=== PATIENT | male | born 1955 | race Caucasian/White ===

== ENCOUNTER 2019-10-12 12:42 | Observation (INO) ==
[2019-10-12 13:31] LABS: Basophils % 0.6 %; Eosinophils % 4.6 %; Hematocrit 33.1 % (37.5-50.1); Immature Granulocytes % 0.1 % (0-4); Lymphocytes % 18.4 %; Mean Corpuscular HGB Conc 33.2 g/dL (31.6-35.5); Mean Corpuscular Hemoglobin 31.3 pg (28.0-33.3); Mean Platelet Volume 9.7 fL (9.4-12.4); Monocytes % 8.8 %; Platelet Count 109 K/mcL (140-400); Red Blood Count 3.52 M/mcL (4.19-5.50); Red Cell Distribution Width 13.4 % (11.5-14.5); Segmented Neutrophils % 67.5 %
[2019-10-12 13:32] LABS: Eosinophils # 0.3 K/mcL (0.0-0.6); Lymphocytes # 1.3 K/mcL (0.6-4.6); Monocytes # 0.6 K/mcL (0.0-1.3); Neutrophils # 4.7 K/mcL (1.6-8.9)
[2019-10-12 13:47] LABS: Alanine Aminotransferase 11 Units/L (7-52); Albumin 4.3 g/dL (3.5-5.7); Albumin/Globulin Ratio 1.9 (1.1-2.2); Alkaline Phosphatase 49 Units/L (34-104); Aspartate Amino Transferase 10 Units/L (13-39); BUN/Creatinine Ratio 15 (6-26); Bilirubin,Total 0.4 mg/dL (0.3-1.0); Blood Urea Nitrogen 84 mg/dL (8-23); Calcium 9.7 mg/dL (8.6-10.3); Carbon Dioxide 23 mEq/L (23-29); Chloride 103 mEq/L (98-107); Globulin 2.3 g/dL (2.4-3.5); Glucose 104 mg/dL (70-105); Osmolality,Calculated 312 (280-300); Potassium 3.2 mEq/L (3.5-5.1); Sodium 138 mEq/L (136-145); Total Protein 6.6 g/dL (6.4-8.9); Troponin I < 0.03 ng/mL (< 0.04); eGFR For African Americans 12 (> 60); eGFR For Non-African Americans 10 (> 60)
[2019-10-12] MEDS ORDERED: Potassium Chloride Elixir 20 MEQ/15 ML UDC PO ONE (14:23)
[2019-10-12] MEDS ORDERED: 0.9 % Sodium Chloride 500 ML IVC ONE ×2 (14:32→15:00)
[2019-10-12] MEDS ORDERED: Naloxone 0.4 MG/ML INJ IVP PRN (16:08)
[2019-10-12 16:24] LABS: Creatine Kinase 111 Units/L (30-223); Uric Acid 8.6 mg/dL (2.3-7.6)
[2019-10-12] MEDS: 0.9 % Sodium Chloride 1,000 ML IVC SCH (17:20)
[2019-10-12 18:14] LABS: Bilirubin,Urine Negative (Negative); Blood,Urine Negative (Negative); Clarity,Urine Clear (Clear); Color,Urine Colorless (Yellow); Glucose,Urine (UA) Normal (Normal); Ketones,Urine Negative (Negative); Leukocyte Esterase,Urine Negative (Negative); Nitrite,Urine Negative (Negative); Protein,Urine 70 mg/dL (Neg-Trace); RBC,Urine 0-3 per hpf (0-3); Specific Gravity,Urine 1.008 (1.010-1.025); Squamous Epithelial Cell,Urine Few per hpf (None-Few); Urobilinogen,Urine Normal (Normal); WBC,Urine 0-3 per hpf (0-3)
[2019-10-13 05:45] LABS: Calcium 9.2 mg/dL (8.6-10.3); Potassium 3.1 mEq/L (3.5-5.1)
[2019-10-13] MEDS: 0.9 % Sodium Chloride 1,000 ML IVC SCH (08:45)
[2019-10-13] MEDS: allopurinoL 300 MG TABLET PO SCH (08:48)
[2019-10-13] MEDS ORDERED: Potassium Chloride Elixir 20 MEQ/15 ML UDC PO ONE (13:26)
[2019-10-14 06:02] LABS: Calcium 9.4 mg/dL (8.6-10.3); Potassium 3.4 mEq/L (3.5-5.1)
[2019-10-14 08:26] LABS: Magnesium 2.9 mg/dL (1.6-2.6); Phosphorous 5.9 mg/dL (2.7-4.5)
[2019-10-14] MEDS: allopurinoL 300 MG TABLET PO SCH (08:36)
[2019-10-14 11:11] VITALS: BP 125/76
== END 2019-10-14 11:59 | disposition home or self-care (01) ==
LOC: 2ANU 12:42 → EMEROOARM 12:42 → SUATTDRO 15:23 → 2ANU 15:53
PROVIDERS: ADMIT Internal Medicine; ATTEND Internal Medicine

== ENCOUNTER 2020-10-08 21:52 | Inpatient (IN) ==
[2020-10-08] MEDS ORDERED: Isovue-370 500 ML BOTTLE IVP ONE (23:36)
[2020-10-09 00:05] LABS: Bacteria,Urine Few per hpf (None-Few); Bilirubin,Urine Negative (Negative); Blood,Urine Trace (Negative); Clarity,Urine Clear (Clear); Color,Urine Colorless (Yellow); Glucose,Urine (UA) 100 mg/dL (Normal); Ketones,Urine Negative (Negative); Leukocyte Esterase,Urine Negative (Negative); Nitrite,Urine Negative (Negative); PH,Urine 6.5 pH Units (5.0-8.0); Protein,Urine 200 mg/dL (Neg-Trace); RBC,Urine 0-3 per hpf (0-3); Specific Gravity,Urine 1.011 (1.010-1.025); Urobilinogen,Urine Normal (Normal); WBC,Urine 0-3 per hpf (0-3)
[2020-10-09] MEDS ORDERED: Piperacillin/Tazobactam 3.375 GM in Water for inj. (sterile) 20 ML IVP ONE (00:06)
[2020-10-09 00:42] LABS: Basophils % 0.3 %; Eosinophils # 0.3 K/mcL (0.0-0.6); Eosinophils % 2.4 %; Hematocrit 26.9 % (37.5-50.1); Hemoglobin 8.8 g/dL (12.9-16.9); Immature Granulocytes % 0.3 % (0-4); Lymphocytes # 0.9 K/mcL (0.6-4.6); Lymphocytes % 8.4 %; Mean Corpuscular HGB Conc 32.7 g/dL (31.6-35.5); Mean Corpuscular Hemoglobin 32.8 pg (28.0-33.3); Mean Corpuscular Volume 100.4 fL (83.0-100.0); Mean Platelet Volume 9.5 fL (9.4-12.4); Monocytes # 1.1 K/mcL (0.0-1.3); Neutrophils # 8.7 K/mcL (1.6-8.9); Platelet Count 100 K/mcL (140-400); Red Blood Count 2.68 M/mcL (4.19-5.50); Segmented Neutrophils % 78.6 %
[2020-10-09] MEDS ORDERED: Vancomycin 1,750 MG/517.5 ML IV.SOLN IVPB ONE (01:00)
[2020-10-09 01:02] LABS: Albumin 4.2 g/dL (3.5-5.7); Albumin/Globulin Ratio 1.6 (1.1-2.2); Bilirubin,Direct 0.1 mg/dL (0.0-0.2); Bilirubin,Indirect 0.3 mg/dL (0.0-1.0); Bilirubin,Total 0.4 mg/dL (0.3-1.0); Globulin 2.7 g/dL (2.4-3.5); Magnesium 2.8 mg/dL (1.6-2.6); Potassium 4.3 mEq/L (3.5-5.1); Total Protein 6.9 g/dL (6.4-8.9)
[2020-10-09] MEDS ORDERED: *HR* HYDROcodone/Acet 5/325 mg TABLET PO PRN (04:56)
[2020-10-09] MEDS ORDERED: Ondansetron 4 MG/2 ML VIAL IVP PRN (04:56)
[2020-10-09] MEDS ORDERED: *HR* OxyCODONE Immed Rel 5 MG TABLET PO PRN (04:56)
[2020-10-09] MEDS ORDERED: Naloxone 0.4 MG/ML INJ IVP PRN (04:56)
[2020-10-09] MEDS ORDERED: *HR* Promethazine 25 MG/ML VIAL IM PRN (04:56)
[2020-10-09] MEDS ORDERED: Melatonin 3 MG TABLET PO PRN (04:56)
[2020-10-09] MEDS ORDERED: Acetaminophen 325 MG TABLET PO PRN (04:56)
[2020-10-09] MEDS ORDERED: Vancomycin 1 EACH in 0.9 % Sodium Chloride 250 ML IVPB PRN (06:00)
[2020-10-09] MEDS ORDERED: Piperacillin/Tazobactam 3.375 GM in 0.9 % Sodium Chloride Mini Bag 100 ML IVPB SCH (08:00)
[2020-10-09] MEDS: Piperacillin/Tazobactam 3.375 GM in 0.9 % Sodium Chloride Mini Bag 100 ML IVPB SCH (12:33)
[2020-10-09 15:47] LABS: Hepatitis B Surface Antibody < 3.10 mIU/mL
[2020-10-09 15:56] LABS: Hepatitis B Surface Antigen Nonreactive (Nonreactive)
[2020-10-10] MEDS: Piperacillin/Tazobactam 3.375 GM in 0.9 % Sodium Chloride Mini Bag 100 ML IVPB SCH ×2 (00:41→12:18)
[2020-10-10 06:26] LABS: Basophils % 0.3 %; Eosinophils # 0.2 K/mcL (0.0-0.6); Eosinophils % 1.6 %; Hematocrit 27.3 % (37.5-50.1); Hemoglobin 9.1 g/dL (12.9-16.9); Immature Granulocytes % 0.4 % (0-4); Lymphocytes # 0.7 K/mcL (0.6-4.6); Lymphocytes % 6.2 %; Mean Corpuscular HGB Conc 33.3 g/dL (31.6-35.5); Mean Corpuscular Hemoglobin 33.3 pg (28.0-33.3); Mean Platelet Volume 9.5 fL (9.4-12.4); Monocytes # 1.1 K/mcL (0.0-1.3); Monocytes % 9.5 %; Neutrophils # 9.5 K/mcL (1.6-8.9); Platelet Count 101 K/mcL (140-400); Red Blood Count 2.73 M/mcL (4.19-5.50); White Blood Count 11.6 K/mcL (4.3-11.1)
[2020-10-10 06:47] LABS: Calcium 9.3 mg/dL (8.6-10.3); Magnesium 2.6 mg/dL (1.6-2.6); Potassium 4.2 mEq/L (3.5-5.1)
[2020-10-10] MEDS ORDERED: Gentamicin Oint 15 GM TUBE TP SCH ×2 (08:00→15:16)
[2020-10-10] MEDS ORDERED: Perit. Dialysis with Dex 2.5 % 2,000 ML PERITONEAL ONE (08:02)
[2020-10-10] MEDS ORDERED: Multivit/Ca/Min/Fe/FA 1 TAB TABLET PO SCH (09:00)
[2020-10-10] MEDS ORDERED: amLODIPine 5 MG TABLET PO SCH (09:00)
[2020-10-10] MEDS ORDERED: Cholecalciferol (D-3) 1,000 UNIT (25MCG) TABLET PO SCH (09:00)
[2020-10-10] MEDS ORDERED: Renal Vitamin 1 CAP CAPSULE PO SCH (09:00)
[2020-10-10] MEDS ORDERED: calcitrioL 0.25 MCG CAPSULE PO SCH (09:00)
[2020-10-10] MEDS ORDERED: allopurinoL 300 MG TABLET PO SCH (09:00)
[2020-10-10] MEDS ORDERED: *HR* Propofol 200 MG/20 ML VIAL IVP ONE (12:29)
[2020-10-10] MEDS ORDERED: *HR* FentaNYL (PF) 100 MCG/2 ML VIAL ONE (12:29)
[2020-10-10] MEDS ORDERED: *HR* Midazolam HCl 2 MG/2 ML VIAL ONE (12:29)
[2020-10-10] MEDS ORDERED: Acetaminophen IV 1,000 MG/100 ML BAG IVPB ONE ×2 (13:21→15:16)
[2020-10-10] MEDS ORDERED: *HR* OxyCODONE Immed Rel 5 MG TABLET PO PRN ×2 (13:21→15:16)
[2020-10-10] MEDS ORDERED: *HR* Labetalol 20 MG/4 ML SYRINGE IVP PRN (13:21)
[2020-10-10] MEDS ORDERED: *HR* HYDROmorphone 2 MG TABLET PO PRN (13:21)
[2020-10-10] MEDS ORDERED: *HR* HYDROmorphone (PF) 1 MG/ML SYRINGE IVP PRN (13:21)
[2020-10-10] MEDS ORDERED: Famotidine 20 MG/2 ML VIAL IVP ONE ×2 (13:21→15:16)
[2020-10-10] MEDS ORDERED: Ondansetron 4 MG/2 ML VIAL ONE (13:57)
[2020-10-10] MEDS ORDERED: Lidocaine -MPF 2% 2 ML VIAL ONE (13:57)
[2020-10-10] MEDS ORDERED: EPHEDrine 50 MG/ML VIAL ONE (13:59)
[2020-10-10] MEDS ORDERED: Ondansetron 4 MG/2 ML VIAL IVP PRN (15:16)
[2020-10-10] MEDS ORDERED: Acetaminophen 325 MG TABLET PO PRN (15:16)
[2020-10-10] MEDS ORDERED: Naloxone 0.4 MG/ML INJ IVP PRN (15:16)
[2020-10-10] MEDS ORDERED: Vancomycin 1 EACH in 0.9 % Sodium Chloride 250 ML IVPB PRN (15:16)
[2020-10-10] MEDS ORDERED: *HR* HYDROcodone/Acet 5/325 mg TABLET PO PRN (15:16)
[2020-10-10] MEDS ORDERED: *HR* Promethazine 25 MG/ML VIAL IM PRN (15:16)
[2020-10-11] MEDS: Piperacillin/Tazobactam 3.375 GM in 0.9 % Sodium Chloride Mini Bag 100 ML IVPB SCH ×2 (00:35→11:44)
[2020-10-11 05:39] LABS: Hematocrit 24.3 % (37.5-50.1); Hemoglobin 7.8 g/dL (12.9-16.9); Immature Platelets 0.7 % (1.1-6.1); Mean Corpuscular HGB Conc 32.1 g/dL (31.6-35.5); Mean Corpuscular Hemoglobin 32.4 pg (28.0-33.3); Mean Corpuscular Volume 100.8 fL (83.0-100.0); Mean Platelet Volume 9.6 fL (9.4-12.4); Red Blood Count 2.41 M/mcL (4.19-5.50); Red Cell Distribution Width 13.7 % (11.5-14.5); White Blood Count 10.4 K/mcL (4.3-11.1)
[2020-10-11 06:08] LABS: Calcium 9.1 mg/dL (8.6-10.3); Potassium 4.4 mEq/L (3.5-5.1)
[2020-10-11] MEDS: amLODIPine 5 MG TABLET PO SCH (09:00)
[2020-10-11] MEDS ORDERED: calcitrioL 0.25 MCG CAPSULE PO SCH (09:00)
[2020-10-11] MEDS ORDERED: Cholecalciferol (D-3) 1,000 UNIT (25MCG) TABLET PO SCH (09:00)
[2020-10-11] MEDS: Multivit/Ca/Min/Fe/FA 1 TAB TABLET PO SCH (09:00)
[2020-10-11] MEDS: Renal Vitamin 1 CAP CAPSULE PO SCH (09:00)
[2020-10-11] MEDS: allopurinoL 300 MG TABLET PO SCH (09:01)
[2020-10-12] MEDS: Piperacillin/Tazobactam 3.375 GM in 0.9 % Sodium Chloride Mini Bag 100 ML IVPB SCH ×2 (00:17→12:00)
[2020-10-12 01:35] LABS: Mean Platelet Volume 9.7 fL (9.4-12.4); Red Cell Distribution Width 13.3 % (11.5-14.5)
[2020-10-12 01:36] LABS: Immature Platelets 0.6 % (1.1-6.1); Mean Corpuscular HGB Conc 33.3 g/dL (31.6-35.5); Mean Corpuscular Hemoglobin 32.9 pg (28.0-33.3); Mean Corpuscular Volume 98.8 fL (83.0-100.0); Red Blood Count 2.43 M/mcL (4.19-5.50); White Blood Count 9.3 K/mcL (4.3-11.1)
[2020-10-12 02:00] LABS: Magnesium 2.8 mg/dL (1.6-2.6); Phosphorous 6.6 mg/dL (2.7-4.5)
[2020-10-12 02:01] LABS: Calcium 9.5 mg/dL (8.6-10.3); Potassium 3.9 mEq/L (3.5-5.1)
[2020-10-12] MEDS: Multivit/Ca/Min/Fe/FA 1 TAB TABLET PO SCH (08:55)
[2020-10-12] MEDS: allopurinoL 300 MG TABLET PO SCH (08:55)
[2020-10-12] MEDS: amLODIPine 5 MG TABLET PO SCH (08:55)
[2020-10-12] MEDS: Renal Vitamin 1 CAP CAPSULE PO SCH (08:55)
[2020-10-12] MEDS ORDERED: 0.9 % Sodium Chloride 250 ML IVC PRN (09:33)
[2020-10-12] MEDS ORDERED: *HR* Heparin 10,000 UNIT/10 ML VIAL IV PRN (09:33)
[2020-10-12] MEDS ORDERED: 0.9 % Sodium Chloride 1,000 ML PRIME SCH (09:45)
[2020-10-12] MEDS ORDERED: 0.9 % Sodium Chloride 500 ML ONE (13:03)
[2020-10-12] MEDS ORDERED: *HR* FentaNYL (PF) 100 MCG/2 ML VIAL IVP ONE (13:09)
[2020-10-12] MEDS ORDERED: CeFAZolin 2,000MG/50ML DUPLEX 2,000 MG/50 ML BAG IVPB ONE (13:09)
[2020-10-12] MEDS ORDERED: *HR* Midazolam HCl 5 MG/5 ML VIAL IVP ONE (13:09)
[2020-10-12] MEDS ORDERED: *HR* Midazolam HCl 2 MG/2 ML VIAL ONE (13:16)
[2020-10-12] MEDS ORDERED: *HR* Heparin 5,000 UNIT/ML VIAL ONE (13:23)
[2020-10-13] MEDS: Piperacillin/Tazobactam 3.375 GM in 0.9 % Sodium Chloride Mini Bag 100 ML IVPB SCH ×2 (00:27→13:16)
[2020-10-13 06:42] LABS: Hematocrit 26.6 % (37.5-50.1); Hemoglobin 8.9 g/dL (12.9-16.9); Mean Corpuscular HGB Conc 33.5 g/dL (31.6-35.5); Mean Corpuscular Hemoglobin 33.2 pg (28.0-33.3); Mean Corpuscular Volume 99.3 fL (83.0-100.0); Mean Platelet Volume 9.8 fL (9.4-12.4); Platelet Count 114 K/mcL (140-400); Red Blood Count 2.68 M/mcL (4.19-5.50); Red Cell Distribution Width 13.3 % (11.5-14.5); White Blood Count 9.3 K/mcL (4.3-11.1)
[2020-10-13 06:55] LABS: Magnesium 2.4 mg/dL (1.6-2.6); Phosphorous 5.8 mg/dL (2.7-4.5)
[2020-10-13 06:57] LABS: Calcium 9.4 mg/dL (8.6-10.3); Potassium 3.9 mEq/L (3.5-5.1)
[2020-10-13] MEDS ORDERED: *HR* Heparin 10,000 UNIT/10 ML VIAL IV PRN (07:56)
[2020-10-13] MEDS ORDERED: 0.9 % Sodium Chloride 250 ML IVC PRN (07:56)
[2020-10-13] MEDS: Renal Vitamin 1 CAP CAPSULE PO SCH (08:43)
[2020-10-13] MEDS: allopurinoL 300 MG TABLET PO SCH (08:44)
[2020-10-13] MEDS: Multivit/Ca/Min/Fe/FA 1 TAB TABLET PO SCH (08:44)
[2020-10-13] MEDS: amLODIPine 5 MG TABLET PO SCH (13:16)
[2020-10-13] MEDS ORDERED: Vancomycin 500 MG in 0.9 % Sodium Chloride Mini Bag 100 ML IVPB ONE (15:00)
[2020-10-13] MEDS: Melatonin 3 MG TABLET PO PRN (22:11)
[2020-10-14] MEDS: Piperacillin/Tazobactam 3.375 GM in 0.9 % Sodium Chloride Mini Bag 100 ML IVPB SCH ×2 (00:03→14:48)
[2020-10-14 02:54] LABS: Hematocrit 28.3 % (37.5-50.1); Hemoglobin 9.2 g/dL (12.9-16.9); Mean Corpuscular HGB Conc 32.5 g/dL (31.6-35.5); Mean Corpuscular Hemoglobin 32.4 pg (28.0-33.3); Mean Corpuscular Volume 99.6 fL (83.0-100.0); Mean Platelet Volume 9.3 fL (9.4-12.4); Platelet Count 120 K/mcL (140-400); Red Blood Count 2.84 M/mcL (4.19-5.50); Red Cell Distribution Width 13.3 % (11.5-14.5); White Blood Count 9.3 K/mcL (4.3-11.1)
[2020-10-14 03:15] LABS: Calcium 9.2 mg/dL (8.6-10.3); Magnesium 2.3 mg/dL (1.6-2.6); Phosphorous 4.8 mg/dL (2.7-4.5); Potassium 3.4 mEq/L (3.5-5.1)
[2020-10-14] MEDS ORDERED: 0.9 % Sodium Chloride 250 ML IVC PRN (08:41)
[2020-10-14] MEDS ORDERED: *HR* Heparin 10,000 UNIT/10 ML VIAL IV PRN ×2 (08:41)
[2020-10-14] MEDS: Multivit/Ca/Min/Fe/FA 1 TAB TABLET PO SCH (09:22)
[2020-10-14] MEDS: Renal Vitamin 1 CAP CAPSULE PO SCH (09:22)
[2020-10-14] MEDS: allopurinoL 300 MG TABLET PO SCH (09:22)
[2020-10-14] MEDS: amLODIPine 5 MG TABLET PO SCH (14:29)
[2020-10-14] MEDS: Amoxicillin/Clavulanate 500 MG TABLET PO SCH (16:09)
[2020-10-14] MEDS: Doxycycline 100 MG CAPSULE PO SCH (20:43)
[2020-10-15 03:33] LABS: Basophils # 0.1 K/mcL (0.0-0.2); Basophils % 0.5 %; Eosinophils # 0.8 K/mcL (0.0-0.6); Eosinophils % 7.5 %; Hematocrit 29.4 % (37.5-50.1); Hemoglobin 9.6 g/dL (12.9-16.9); Immature Granulocytes % 0.5 % (0-4); Lymphocytes # 1.7 K/mcL (0.6-4.6); Lymphocytes % 16.9 %; Mean Corpuscular HGB Conc 32.7 g/dL (31.6-35.5); Mean Corpuscular Hemoglobin 33.1 pg (28.0-33.3); Mean Corpuscular Volume 101.4 fL (83.0-100.0); Mean Platelet Volume 9.5 fL (9.4-12.4); Monocytes # 1.1 K/mcL (0.0-1.3); Monocytes % 10.6 %; Neutrophils # 6.5 K/mcL (1.6-8.9); Platelet Count 136 K/mcL (140-400); Red Cell Distribution Width 13.3 % (11.5-14.5); White Blood Count 10.1 K/mcL (4.3-11.1)
[2020-10-15 03:48] LABS: Calcium 9.6 mg/dL (8.6-10.3); Potassium 3.9 mEq/L (3.5-5.1)
[2020-10-15] MEDS: allopurinoL 300 MG TABLET PO SCH (08:07)
[2020-10-15] MEDS: Multivit/Ca/Min/Fe/FA 1 TAB TABLET PO SCH (08:07)
[2020-10-15] MEDS: amLODIPine 5 MG TABLET PO SCH (08:07)
[2020-10-15] MEDS: Doxycycline 100 MG CAPSULE PO SCH ×2 (08:07→20:44)
[2020-10-15] MEDS: Amoxicillin/Clavulanate 500 MG TABLET PO SCH ×2 (08:07→17:19)
[2020-10-15] MEDS: Renal Vitamin 1 CAP CAPSULE PO SCH (08:08)
[2020-10-15] MEDS ORDERED: Ipratropium/Albuterol Neb 3 ML IH PRN (19:46)
[2020-10-15] MEDS: Melatonin 3 MG TABLET PO PRN (20:44)
[2020-10-16 03:34] LABS: Basophils # 0.1 K/mcL (0.0-0.2); Basophils % 0.5 %; Eosinophils # 0.7 K/mcL (0.0-0.6); Eosinophils % 7.1 %; Hematocrit 26.6 % (37.5-50.1); Hemoglobin 8.6 g/dL (12.9-16.9); Immature Granulocytes % 0.9 % (0-4); Lymphocytes # 1.5 K/mcL (0.6-4.6); Lymphocytes % 14.4 %; Mean Corpuscular HGB Conc 32.3 g/dL (31.6-35.5); Mean Corpuscular Hemoglobin 32.6 pg (28.0-33.3); Mean Corpuscular Volume 100.8 fL (83.0-100.0); Mean Platelet Volume 9.9 fL (9.4-12.4); Monocytes # 0.9 K/mcL (0.0-1.3); Monocytes % 8.9 %; Platelet Count 116 K/mcL (140-400); Red Blood Count 2.64 M/mcL (4.19-5.50); Red Cell Distribution Width 13.2 % (11.5-14.5); Segmented Neutrophils % 68.2 %; White Blood Count 10.3 K/mcL (4.3-11.1)
[2020-10-16 03:57] LABS: Calcium 9.5 mg/dL (8.6-10.3)
[2020-10-16 07:58] VITALS: PULSE 71; O2SAT 99
[2020-10-16] MEDS ORDERED: 0.9 % Sodium Chloride 250 ML IVC PRN (08:05)
[2020-10-16] MEDS ORDERED: *HR* Heparin 10,000 UNIT/10 ML VIAL IV PRN ×2 (08:05)
[2020-10-16] MEDS: Amoxicillin/Clavulanate 500 MG TABLET PO SCH (08:13)
[2020-10-16] MEDS: allopurinoL 300 MG TABLET PO SCH (08:13)
[2020-10-16] MEDS: Renal Vitamin 1 CAP CAPSULE PO SCH (08:13)
[2020-10-16] MEDS: Multivit/Ca/Min/Fe/FA 1 TAB TABLET PO SCH (08:13)
[2020-10-16] MEDS: Doxycycline 100 MG CAPSULE PO SCH (08:13)
[2020-10-16 13:56] VITALS: BP 144/90; TEMP 98.6
[2020-10-16] MEDS: amLODIPine 5 MG TABLET PO SCH (14:07)
== END 2020-10-16 14:38 | disposition home or self-care (01) | DRG 907 ==
LOC: 2ANU 21:52 → EMEROOARM 21:52 → SUATTDRO 10-09 03:13 → 2ANU 10-09 04:00
PROVIDERS: ADMIT Family Medicine; ATTEND Family Medicine
PROC: IRPERMA (2020-10-12 12:00)

== ENCOUNTER 2020-12-25 10:46 | Inpatient (IN) ==
[~2020-12-25 10:46] MED LIST: Acetaminophen IV 1,000 MG/100 ML BAG IVPB ONE; Famotidine 20 MG/2 ML VIAL IVP ONE
[2020-12-25] MEDS ORDERED: CeFAZolin Syr 2,000MG/20 ML 2,000 MG/20 ML SYRINGE IVPB ONE (11:14)
[2020-12-25] MEDS ORDERED: Ringers Solution, Lactated 1,000 ML IVC SCH (11:15)
[2020-12-25] MEDS ORDERED: Ondansetron 4 MG/2 ML VIAL ONE (12:16)
[2020-12-25] MEDS ORDERED: *HR* Rocuronium Bromide 50 MG/5 ML VIAL ONE ×2 (12:16→14:38)
[2020-12-25] MEDS ORDERED: *HR* Succinylcholine 200 MG/10 ML VIAL IVP ONE (12:16)
[2020-12-25] MEDS ORDERED: *HR* Phenylephrine 10 MG/ML VIAL ONE (12:16)
[2020-12-25] MEDS ORDERED: *HR* Propofol 200 MG/20 ML VIAL IVP ONE (12:16)
[2020-12-25] MEDS ORDERED: *HR* FentaNYL (PF) 100 MCG/2 ML VIAL ONE (12:16)
[2020-12-25] MEDS ORDERED: *HR* Vasopressin 20 UNIT/ML VIAL ONE (12:27)
[2020-12-25] MEDS ORDERED: Furosemide 40 MG/4 ML VIAL ONE (12:27)
[2020-12-25] MEDS ORDERED: Mannitol 20% 0 GM/0 ML IV.SOLN IVC ONE (12:27)
[2020-12-25] MEDS ORDERED: Albumin Human 5% 12.5 GM/250 ML IV.SOLN ONE (12:27)
[2020-12-25] MEDS ORDERED: Lidocaine HCL 4 ML Topical Solution (Laryng-O-Jet Kit Sterile Pak) TP ONE (12:33)
[2020-12-25] MEDS ORDERED: Lidocaine -MPF 2% 5 ML VIAL ONE (12:34)
[2020-12-25] MEDS ORDERED: *HR* Midazolam HCl 2 MG/2 ML VIAL ONE (12:35)
[2020-12-25] MEDS ORDERED: Bupivacaine-MPF 0.25% 10 ML VIAL ONE (12:44)
[2020-12-25] MEDS ORDERED: Sugammadex Sodium 200 MG/2 ML VIAL IV ONE ×2 (13:51→14:53)
[2020-12-25] MEDS ORDERED: *HR* HYDROMORPHONE 2 MG/ML VIAL ONE (13:51)
[2020-12-25] MEDS ORDERED: Famotidine 20 MG/2 ML VIAL IVP ONE (15:51)
[2020-12-25] MEDS ORDERED: *HR* OxyCODONE Immed Rel 5 MG TABLET PO PRN ×2 (15:51→18:08)
[2020-12-25] MEDS ORDERED: *HR* Labetalol 20 MG/4 ML SYRINGE IVP PRN (15:51)
[2020-12-25] MEDS ORDERED: *HR* HYDROmorphone 2 MG TABLET PO PRN (15:51)
[2020-12-25] MEDS ORDERED: *HR* HYDROmorphone (PF) 1 MG/ML SYRINGE IVP PRN (15:51)
[2020-12-25] MEDS ORDERED: Acetaminophen IV 1,000 MG/100 ML BAG IVPB ONE (15:51)
[2020-12-25] MEDS ORDERED: Naloxone 0.4 MG/ML INJ IVP PRN (18:08)
[2020-12-25] MEDS ORDERED: *HR* HYDROcodone/Acet 5/325 mg TABLET PO PRN (18:08)
[2020-12-25] MEDS ORDERED: Ondansetron 4 MG/2 ML VIAL IVP PRN (18:08)
[2020-12-25] MEDS: 0.9 % Sodium Chloride 1,000 ML IVC SCH (18:37)
[2020-12-26 06:25] LABS: Basophils % 0.2 %; Eosinophils % 0.1 %; Mean Corpuscular Hemoglobin 33.2 pg (28.0-33.3); Mean Platelet Volume 9.5 fL (9.4-12.4); Red Cell Distribution Width 14.1 % (11.5-14.5)
[2020-12-26 06:27] LABS: Hematocrit 28.5 % (37.5-50.1); Hemoglobin 9.3 g/dL (12.9-16.9); Immature Granulocytes % 0.4 % (0-4); Immature Platelets 1.4 % (1.1-6.1); Lymphocytes # 0.8 K/mcL (0.6-4.6); Lymphocytes % 9.1 %; Mean Corpuscular HGB Conc 32.6 g/dL (31.6-35.5); Mean Corpuscular Volume 101.8 fL (83.0-100.0); Monocytes % 12.3 %; Segmented Neutrophils % 77.9 %; White Blood Count 8.3 K/mcL (4.3-11.1)
[2020-12-26 06:37] VITALS: O2SAT 97
[2020-12-26 06:38] LABS: Neutrophils # 6.5 K/mcL (1.6-8.9); Platelet Count 85 K/mcL (140-400)
[2020-12-26 06:47] LABS: Calcium 8.8 mg/dL (8.6-10.3); Potassium 4.7 mEq/L (3.5-5.1)
[2020-12-26] MEDS: 0.9 % Sodium Chloride 1,000 ML IVC SCH (08:11)
[2020-12-26] MEDS ORDERED: amLODIPine 5 MG TABLET PO SCH (09:00)
[2020-12-26] MEDS ORDERED: allopurinoL 300 MG TABLET PO SCH (09:00)
[2020-12-26 09:45] VITALS: BP 150/91; PULSE 67; TEMP 97.6
== END 2020-12-26 13:53 | disposition home or self-care (01) | DRG 660 ==
LOC: SAMDAY 10:46 → 3ANU 16:41
PROVIDERS: ADMIT Urology; ATTEND Urology

== ENCOUNTER 2021-06-06 16:28 | Inpatient (IN) ==
[2021-06-06] MEDS ORDERED: cefTRIAXone 1,000 MG in Water for inj. (sterile) 10 ML IVP ONE (17:11)
[2021-06-06 17:56] LABS: Lymphocytes % 2.1 %; Mean Corpuscular Hemoglobin 34.2 pg (28.0-33.3)
[2021-06-06 17:58] LABS: Basophils % 0.1 %; Hematocrit 32.5 % (37.5-50.1); Hemoglobin 10.8 g/dL (12.9-16.9); Immature Granulocytes % 0.5 % (0-4); Immature Platelets 2.8 % (1.1-6.1); Lymphocytes # 0.3 K/mcL (0.6-4.6); Mean Corpuscular HGB Conc 33.2 g/dL (31.6-35.5); Mean Corpuscular Volume 102.8 fL (83.0-100.0); Mean Platelet Volume 10.6 fL (9.4-12.4); Monocytes # 1.7 K/mcL (0.0-1.3); Monocytes % 11.1 %; Red Blood Count 3.16 M/mcL (4.19-5.50); Red Cell Distribution Width 13.3 % (11.5-14.5); Segmented Neutrophils % 86.2 %; White Blood Count 15.4 K/mcL (4.3-11.1)
[2021-06-06 17:59] LABS: Neutrophils # 13.3 K/mcL (1.6-8.9); Platelet Count 50 K/mcL (140-400)
[2021-06-06 18:15] LABS: Influenza A PCR Negative (Negative); Influenza B PCR Negative (Negative); Resp. Syncytial Virus PCR Negative (Negative)
[2021-06-06 18:17] LABS: SARS-CoV-2 by PCR (In House) Negative (Negative)
[2021-06-06 18:37] LABS: INR 1.1; Prothrombin Time 12.8 Seconds (9.4-12.1)
[2021-06-06 18:40] LABS: Activated Partial Thrombo Time 30.8 Seconds (26.0-36.0)
[2021-06-06 19:12] LABS: Alanine Aminotransferase 28 Units/L (7-52); Albumin/Globulin Ratio 1.5 (1.1-2.2); Alkaline Phosphatase 56 Units/L (34-104); Aspartate Amino Transferase 23 Units/L (13-39); BUN/Creatinine Ratio 6 (6-26); Bilirubin,Direct 0.1 mg/dL (0.0-0.2); Bilirubin,Indirect 0.5 mg/dL (0.0-1.0); Bilirubin,Total 0.6 mg/dL (0.3-1.0); Blood Urea Nitrogen 52 mg/dL (8-23); Calcium 9.4 mg/dL (8.6-10.3); Carbon Dioxide 29 mEq/L (23-29); Chloride 95 mEq/L (98-107); Ethanol < 10 mg/dL (Less than 10); Globulin 2.7 g/dL (2.4-3.5); Glucose 99 mg/dL (70-105); Osmolality,Calculated 294 (280-300); Potassium 3.7 mEq/L (3.5-5.1); Sodium 135 mEq/L (136-145); Thyroid Stimulating Hormone 4.003 mcIU/mL (0.340-5.600); Total Protein 6.7 g/dL (6.4-8.9); Troponin I 0.04 ng/mL (< 0.04); eGFR For African Americans 7 (> 60); eGFR For Non-African Americans 6 (> 60)
[2021-06-06 19:14] LABS: Bilirubin,Urine Negative (Negative); Blood,Urine Negative (Negative); Clarity,Urine Clear (Clear); Color,Urine Light-Yellow (Yellow); Glucose,Urine (UA) 100 mg/dL (Normal); Ketones,Urine Negative (Negative); Leukocyte Esterase,Urine Trace (Negative); Mucus,Urine Few per lpf (None-Few); Nitrite,Urine Negative (Negative); PH,Urine 7.5 pH Units (5.0-8.0); Protein,Urine >=600 mg/dL (Neg-Trace); RBC,Urine 0-3 per hpf (0-3); Specific Gravity,Urine 1.011 (1.010-1.025); Squamous Epithelial Cell,Urine Few per hpf (None-Few); Urobilinogen,Urine Normal (Normal)
[2021-06-06 19:23] LABS: Amphetamine Screen,Urine Negative ng/mL (Cutoff=1000); Barbiturate Screen,Urine Negative ng/mL (Cutoff=200); Benzodiazepines Screen,Urine Negative ng/mL (Cutoff=200); Cannabinoid Screen,Urine Negative ng/mL (Cutoff = 50); Cocaine Screen,Urine Negative ng/mL (Cutoff= 300); Opiate Screen,Urine Negative ng/mL (Cutoff=300); Phencyclidine Screen,Urine Negative ng/mL (Cutoff=25)
[2021-06-06] MEDS ORDERED: Naloxone 0.4 MG/ML INJ IVP PRN (20:14)
[2021-06-06] MEDS ORDERED: Melatonin 3 MG TABLET PO PRN (20:14)
[2021-06-06] MEDS ORDERED: Vancomycin 1,750 MG/517.5 ML IV.SOLN IVPB ONE (22:00)
[2021-06-07 06:24] LABS: Basophils % 0.2 %; Hematocrit 29.6 % (37.5-50.1)
[2021-06-07 06:26] LABS: Hemoglobin 9.6 g/dL (12.9-16.9); Immature Granulocytes % 0.3 % (0-4); Immature Platelets 2.3 % (1.1-6.1); Lymphocytes # 0.4 K/mcL (0.6-4.6); Lymphocytes % 3.2 %; Mean Corpuscular HGB Conc 32.4 g/dL (31.6-35.5); Mean Corpuscular Hemoglobin 34.2 pg (28.0-33.3); Mean Corpuscular Volume 105.3 fL (83.0-100.0); Monocytes # 0.9 K/mcL (0.0-1.3); Neutrophils # 10.2 K/mcL (1.6-8.9); Red Blood Count 2.81 M/mcL (4.19-5.50); Red Cell Distribution Width 13.6 % (11.5-14.5); Segmented Neutrophils % 88.3 %; White Blood Count 11.5 K/mcL (4.3-11.1)
[2021-06-07 06:30] LABS: Platelet Count 47 K/mcL (140-400)
[2021-06-07] MEDS ORDERED: Piperacillin/Tazobactam 3.375 GM in 0.9 % Sodium Chloride Mini Bag 100 ML IVPB SCH (06:36)
[2021-06-07] MEDS ORDERED: Acetaminophen IV 500 MG/50 ML BAG IVPB ONE (06:37)
[2021-06-07 06:43] LABS: Albumin 3.8 g/dL (3.5-5.7); Albumin/Globulin Ratio 1.7 (1.1-2.2); Bilirubin,Total 0.4 mg/dL (0.3-1.0); Calcium 8.9 mg/dL (8.6-10.3); Globulin 2.3 g/dL (2.4-3.5); Magnesium 2.2 mg/dL (1.6-2.6); Phosphorous 4.4 mg/dL (2.7-4.5); Total Protein 6.1 g/dL (6.4-8.9); Troponin I 0.18 ng/mL (< 0.04)
[2021-06-07] MEDS ORDERED: Perflutren Lipid Microsphere 1.3 ML in 0.9 % Sodium Chloride 8.7 ML IVP PRN (06:44)
[2021-06-07] MEDS: Vitamin B Complex/Vit C/Vit E 1 EACH TABLET PO SCH (07:49)
[2021-06-07] MEDS: Aspirin 81 MG TAB.CHEW PO SCH (07:56)
[2021-06-07] MEDS ORDERED: (Sucroferric Oxyhydroxide [Velphoro] 500 MG Tab.Chew) PO SCH (08:00)
[2021-06-07] MEDS ORDERED: Vitamin B Complex/Vit C/Vit E 1 EACH TABLET PO SCH (09:00)
[2021-06-07 09:14] LABS: Hepatitis B Surface Antibody < 3.10 mIU/mL
[2021-06-07 09:25] LABS: Hepatitis B Surface Antigen Nonreactive (Nonreactive)
[2021-06-07] MEDS: (Sucroferric Oxyhydroxide [Velphoro] 500 MG Tab.Chew) PO SCH ×2 (11:43→16:27)
[2021-06-07 14:15] LABS: A.calcoaceticus-baumannii cplx Not Detected (Not Detect); Bacteroides fragilis by PCR Not Detected (Not Detect); Candida albicans by PCR Not Detected (Not Detect); Candida auris by PCR Not Detected (Not Detect); Candida glabrata by PCR Not Detected (Not Detect); Candida krusei by PCR Not Detected (Not Detect); Candida parapsilosis by PCR Not Detected (Not Detect); Candida tropicalis by PCR Not Detected (Not Detect); Crypto. neoformans/gattii PCR Not Detected (Not Detect); Enterobacter cloacae Cmplx PCR Not Detected (Not Detect); Enterobacterales by PCR Not Detected (Not Detect); Enterococcus faecalis by PCR Not Detected (Not Detect); Enterococcus faecium by PCR Not Detected (Not Detect); Escherichia coli by PCR Not Detected (Not Detect); Klebs. pneumoniae group by PCR Not Detected (Not Detect); Klebsiella aerogenes by PCR Not Detected (Not Detect); Klebsiella oxytoca by PCR Not Detected (Not Detect); Proteus by PCR Not Detected (Not Detect); Pseudomonas aeruginosa by PCR Not Detected (Not Detect); Salmonella species by PCR Not Detected (Not Detect); Serratia marcescens by PCR Not Detected (Not Detect); Staph epidermidis by PCR Not Detected (Not Detect); Staph lugdunensis by PCR Not Detected (Not Detect); Staphylococcus aureus by PCR DETECTED (Not Detect); Stenotrophomonas maltophilia Not Detected (Not Detect); Streptococcus agalactiae(B)PCR Not Detected (Not Detect); Streptococcus by PCR Not Detected (Not Detect); Streptococcus pneumoniae PCR Not Detected (Not Detect); Streptococcus pyogenes (A) PCR Not Detected (Not Detect); mecA/C & MREJ (MRSA) Gene Not Detected (Not Detect)
[2021-06-07] MEDS ORDERED: *HR* OxyCODONE/APAP 5/325 TABLET PO PRN ×2 (15:54→17:40)
[2021-06-07] MEDS ORDERED: ceFAZolin 1,000 MG in 0.9 % Sodium Chloride Mini Bag 100 ML IVPB ONE (16:00)
[2021-06-07] MEDS ORDERED: Vancomycin 1,750 MG in 0.9 % Sodium Chloride 250 ML IVPB SCH (17:00)
[2021-06-07] MEDS ORDERED: Isovue-370 500 ML BOTTLE IVP ONE (20:52)
[2021-06-08 04:33] LABS: Calcium 9.1 mg/dL (8.6-10.3); Potassium 3.6 mEq/L (3.5-5.1); Troponin I 0.15 ng/mL (< 0.04)
[2021-06-08 04:41] LABS: Adenovirus Not Detected (Not Detect); Bordetella Pertussis Not Detected (Not Detect); Chlamydophila pneumoniae Not Detected (Not Detect); Coronavirus 229E Not Detected (Not Detect); Coronavirus HKU1 Not Detected (Not Detect); Coronavirus NL63 Not Detected (Not Detect); Coronavirus OC43 Not Detected (Not Detect); Human Metapneumovirus Not Detected (Not Detect); Human Rhinovirus/Enterovirus Not Detected (Not Detect); Influenza A Subtype 2009 H1 Not Detected (Not Detect); Influenza B Not Detected (Not Detect); Mycoplasma pneumoniae Not Detected (Not Detect); Parainfluenza Virus 1 Not Detected (Not Detect); Parainfluenza Virus 2 Not Detected (Not Detect); Parainfluenza Virus 3 Not Detected (Not Detect); Parainfluenza Virus 4 Not Detected (Not Detect); Respiratory Syncytial Virus Not Detected (Not Detect); SARS-CoV-2 Not Detected (Not Detect)
[2021-06-08] MEDS: Aspirin 81 MG TAB.CHEW PO SCH (08:04)
[2021-06-08] MEDS: (Sucroferric Oxyhydroxide [Velphoro] 500 MG Tab.Chew) PO SCH ×3 (08:05→21:22)
[2021-06-08] MEDS: Vitamin B Complex/Vit C/Vit E 1 EACH TABLET PO SCH (08:05)
[2021-06-08] MEDS ORDERED: Ethyl Chloride Spray Bottle (104 SPRAY/BOTTLE) TP PRN (08:08)
[2021-06-08] MEDS ORDERED: 0.9 % Sodium Chloride 250 ML IVC PRN (08:08)
[2021-06-08] MEDS ORDERED: 0.9 % Sodium Chloride 1,000 ML PRIME SCH (08:15)
[2021-06-08] MEDS ORDERED: ceFAZolin 3,000 MG in 0.9 % Sodium Chloride 100 ML IVPB ONE (14:48)
[2021-06-08] MEDS ORDERED: ceFAZolin 3,000 MG in 0.9 % Sodium Chloride 100 ML IVPB SCH (16:00)
[2021-06-09 02:20] LABS: Basophils % 0.4 %; Eosinophils # 0.1 K/mcL (0.0-0.6); Eosinophils % 2.2 %; Hematocrit 27.5 % (37.5-50.1); Hemoglobin 9.2 g/dL (12.9-16.9); Immature Granulocytes % 0.4 % (0-4); Immature Platelets 4.1 % (1.1-6.1); Lymphocytes # 0.6 K/mcL (0.6-4.6); Lymphocytes % 10.5 %; Mean Corpuscular HGB Conc 33.5 g/dL (31.6-35.5); Mean Corpuscular Hemoglobin 33.8 pg (28.0-33.3); Mean Corpuscular Volume 101.1 fL (83.0-100.0); Mean Platelet Volume 11.2 fL (9.4-12.4); Monocytes # 0.8 K/mcL (0.0-1.3); Monocytes % 15.5 %; Red Blood Count 2.72 M/mcL (4.19-5.50); Red Cell Distribution Width 13.5 % (11.5-14.5); White Blood Count 5.4 K/mcL (4.3-11.1)
[2021-06-09 02:21] LABS: Neutrophils # 3.8 K/mcL (1.6-8.9); Platelet Count 54 K/mcL (140-400)
[2021-06-09 02:28] LABS: INR 1.1; Prothrombin Time 12.6 Seconds (9.4-12.1)
[2021-06-09 02:31] LABS: Activated Partial Thrombo Time 26.9 Seconds (26.0-36.0)
[2021-06-09 02:37] LABS: Potassium 3.4 mEq/L (3.5-5.1)
[2021-06-09] MEDS: (Sucroferric Oxyhydroxide [Velphoro] 500 MG Tab.Chew) PO SCH ×3 (09:21→16:47)
[2021-06-09] MEDS: Aspirin 81 MG TAB.CHEW PO SCH (09:22)
[2021-06-09] MEDS: Metoprolol XL (24 HR) Succ 25 MG TAB.ER.24H PO SCH (09:23)
[2021-06-09] MEDS: allopurinoL 300 MG TABLET PO SCH (09:23)
[2021-06-09] MEDS: Vitamin B Complex/Vit C/Vit E 1 EACH TABLET PO SCH (09:24)
[2021-06-09] MEDS: amLODIPine 5 MG TABLET PO SCH (09:24)
[2021-06-10 04:45] LABS: Basophils % 0.5 %; Hemoglobin 8.8 g/dL (12.9-16.9)
[2021-06-10 04:48] LABS: Eosinophils # 0.3 K/mcL (0.0-0.6); Eosinophils % 5.1 %; Hematocrit 26.3 % (37.5-50.1); Immature Granulocytes % 0.5 % (0-4); Immature Platelets 2.2 % (1.1-6.1); Lymphocytes % 16.2 %; Mean Corpuscular HGB Conc 33.5 g/dL (31.6-35.5); Mean Corpuscular Hemoglobin 34.1 pg (28.0-33.3); Mean Corpuscular Volume 101.9 fL (83.0-100.0); Monocytes % 16.2 %; Neutrophils # 3.6 K/mcL (1.6-8.9); Nucleated Red Blood Cells 0.3 /100 WBC (0); Red Blood Count 2.58 M/mcL (4.19-5.50); Red Cell Distribution Width 13.4 % (11.5-14.5); Segmented Neutrophils % 61.5 %; White Blood Count 5.9 K/mcL (4.3-11.1)
[2021-06-10 04:49] LABS: Platelet Count 73 K/mcL (140-400)
[2021-06-10 05:09] LABS: Calcium 8.8 mg/dL (8.6-10.3); Potassium 3.8 mEq/L (3.5-5.1)
[2021-06-10] MEDS: (Sucroferric Oxyhydroxide [Velphoro] 500 MG Tab.Chew) PO SCH ×3 (07:46→16:35)
[2021-06-10] MEDS: amLODIPine 5 MG TABLET PO SCH (07:46)
[2021-06-10] MEDS: Vitamin B Complex/Vit C/Vit E 1 EACH TABLET PO SCH (07:46)
[2021-06-10] MEDS: Metoprolol XL (24 HR) Succ 25 MG TAB.ER.24H PO SCH (07:46)
[2021-06-10] MEDS: Aspirin 81 MG TAB.CHEW PO SCH (07:46)
[2021-06-10] MEDS: allopurinoL 300 MG TABLET PO SCH (07:46)
[2021-06-11 02:04] LABS: Basophils % 0.4 %; Eosinophils # 0.5 K/mcL (0.0-0.6); Eosinophils % 6.8 %; Hematocrit 25.6 % (37.5-50.1); Hemoglobin 8.7 g/dL (12.9-16.9); Immature Granulocytes % 0.4 % (0-4); Lymphocytes # 1.3 K/mcL (0.6-4.6); Lymphocytes % 19.4 %; Mean Corpuscular Hemoglobin 34.8 pg (28.0-33.3); Mean Corpuscular Volume 102.4 fL (83.0-100.0); Mean Platelet Volume 10.5 fL (9.4-12.4); Monocytes # 0.8 K/mcL (0.0-1.3); Neutrophils # 4.3 K/mcL (1.6-8.9); Red Cell Distribution Width 13.2 % (11.5-14.5); White Blood Count 6.9 K/mcL (4.3-11.1)
[2021-06-11 02:06] LABS: Platelet Count 80 K/mcL (140-400)
[2021-06-11 02:24] LABS: % Iron Saturation 35 % (20-55); Iron 70 mcg/dL (65-175); Transferrin 142 mg/dL (203-362)
[2021-06-11 02:25] LABS: Calcium 8.7 mg/dL (8.6-10.3)
[2021-06-11 02:48] LABS: Folate 17.1 ng/mL (3.0-16.0)
[2021-06-11] MEDS: Aspirin 81 MG TAB.CHEW PO SCH (08:46)
[2021-06-11] MEDS: Metoprolol XL (24 HR) Succ 25 MG TAB.ER.24H PO SCH (08:47)
[2021-06-11] MEDS: Vitamin B Complex/Vit C/Vit E 1 EACH TABLET PO SCH (08:47)
[2021-06-11] MEDS: allopurinoL 300 MG TABLET PO SCH (08:47)
[2021-06-11] MEDS: (Sucroferric Oxyhydroxide [Velphoro] 500 MG Tab.Chew) PO SCH ×3 (08:48→16:16)
[2021-06-11] MEDS ORDERED: Lidocaine Viscous Oral Soln 15 ML SOLUTION MM PRN (08:52)
[2021-06-11] MEDS ORDERED: 0.9 % Sodium Chloride 500 ML IVC ONE (08:53)
[2021-06-11] MEDS ORDERED: Ethyl Chloride Spray Bottle (104 SPRAY/BOTTLE) TP PRN (09:13)
[2021-06-11] MEDS ORDERED: 0.9 % Sodium Chloride 250 ML IVC PRN (09:13)
[2021-06-11] MEDS: *HR* Midazolam HCl 5 MG/5 ML VIAL IVP PRN ×2 (09:30→09:35)
[2021-06-11] MEDS: *HR* FentaNYL (PF) 100 MCG/2 ML VIAL IVP PRN ×2 (09:30→09:35)
[2021-06-11] MEDS: amLODIPine 5 MG TABLET PO SCH (13:43)
[2021-06-11] MEDS ORDERED: CeFAZolin 2 GM/100 ML BAG IVPB SCH ×2 (16:00→20:00)
[2021-06-12 01:30] LABS: Basophils % 0.5 %; Eosinophils % 4.7 %
[2021-06-12 01:32] LABS: Eosinophils # 0.3 K/mcL (0.0-0.6); Hematocrit 25.9 % (37.5-50.1); Hemoglobin 8.7 g/dL (12.9-16.9); Immature Granulocytes % 0.7 % (0-4); Immature Platelets 1.7 % (1.1-6.1); Lymphocytes # 1.3 K/mcL (0.6-4.6); Lymphocytes % 17.5 %; Mean Corpuscular HGB Conc 33.6 g/dL (31.6-35.5); Mean Corpuscular Hemoglobin 34.1 pg (28.0-33.3); Mean Corpuscular Volume 101.6 fL (83.0-100.0); Mean Platelet Volume 10.2 fL (9.4-12.4); Monocytes # 0.7 K/mcL (0.0-1.3); Monocytes % 9.2 %; Neutrophils # 4.9 K/mcL (1.6-8.9); Red Blood Count 2.55 M/mcL (4.19-5.50); Red Cell Distribution Width 13.1 % (11.5-14.5); Segmented Neutrophils % 67.4 %; White Blood Count 7.3 K/mcL (4.3-11.1)
[2021-06-12 01:36] LABS: Platelet Count 89 K/mcL (140-400)
[2021-06-12 01:47] LABS: Calcium 8.8 mg/dL (8.6-10.3); Potassium 3.4 mEq/L (3.5-5.1)
[2021-06-12] MEDS: Metoprolol XL (24 HR) Succ 25 MG TAB.ER.24H PO SCH (07:32)
[2021-06-12] MEDS: (Sucroferric Oxyhydroxide [Velphoro] 500 MG Tab.Chew) PO SCH ×2 (07:33→11:33)
[2021-06-12] MEDS: amLODIPine 5 MG TABLET PO SCH (07:33)
[2021-06-12] MEDS: allopurinoL 300 MG TABLET PO SCH (07:33)
[2021-06-12] MEDS: Aspirin 81 MG TAB.CHEW PO SCH (07:33)
[2021-06-12] MEDS: Vitamin B Complex/Vit C/Vit E 1 EACH TABLET PO SCH (07:33)
[2021-06-12 11:15] VITALS: BP 123/84; PULSE 66; TEMP 98.2; O2SAT 96
== END 2021-06-12 13:55 | disposition home or self-care (01) | DRG 280 ==
LOC: 2ANU 16:28 → EMEROOARM 16:28 → 2ANU 20:57 → SUATTDRO 06-07 14:29
PROVIDERS: ADMIT Internal Medicine; ATTEND Internal Medicine